=== PATIENT | female | born 2000 | race Caucasian/White ===

== ENCOUNTER 2022-07-26 01:47 | Emergency (ER) | payer SELFPAY ==
[~2022-07-26] VITALS: Ht 162.6 cm; Wt 65.8 kg
[2022-07-26 01:56] VITALS: BP 101/70
--- NOTE | 2022-07-26 02:12 | ED GU-Female ---
General Chief Complaint: OB < 20 WEEKS Stated Complaint: VAG BLEEDING 11 WKS PREG Source: patient History of Present Illness Date Seen by Provider: Jul 26, 2022 Time Seen by Provider: 02:00 Initial Comments PT ARRIVES VIA POV FROM HOME WITH MOTHER PT STATES SHE IS 11 WEEKS , WITH LMP 05/07/[address] MORENO YESTER DAY AND AGAIN TODAY FOR ROUTINE CARE, AND HAD A PELVIC EXAM YESTERDAY AND TODAY AND HAD SWABS DONE FOR STD'S, WELL URINE TESTING DONE. SHE STATES SHE ALSO HAD AN ULTRASOUND YESTERDAY--DONE TRANS ABDOMINALLY--NORMAL, PER PT. SHE STATES SHE WAS DX WITH BACTERIAL VAGINOSIS TODAY AND PRESCRIBED ANTIBIOTIC--HAS TAKEN 2 PILLS TODAY TONIGHT, IMMEDIATELY PRIOR TO ARRIVAL-20 MINUTES AGO-SHE WENT TO THE BATHROOM AND HAD BLOOD ON THE TISSUE WITH WIPING AND RUSHED HERE. SHE VOIDED IN WAITING ROOM AND STATES THE BLEEDING HAS STOPPED NOW. SHE HAS NOT HAD ANY PAIN OR CRAMPING AT ANY TIME. NO FEVER NO URINARY SYMPTOMS NO NAUSEA/VOMITING/DIARRHEA/CONSTIPATION. PT IS AB [address]CP: DR. MORENO, [facility] Allergies and Home Medications Allergies Coded Allergies: No Known Drug Allergies (Unverified , 07/26/22) Review of Systems Review of Systems Constitutional: no symptoms reported; No diaphoresis, No dizziness, No fever EENTM: no symptoms reported Respiratory: no symptoms reported Cardiovascular: no symptoms reported Gastrointestinal: no symptoms reported; No abdominal pain, No constipation, No diarrhea, No nausea, No vomiting Genitourinary: see HPI; denies dysuria : Yes LMP: Jun 06, 2012 Musculoskeletal: no symptoms reported Skin: no symptoms reported Psychiatric/Neurological: No Symptoms Reported Endocrine: No Symptoms Reported Hematologic/Lymphatic: No Symptoms Reported Past Jmgmjlq-Mwisso-Qnbyzq Hx Patient Social History Tobacco Use?: No Substance use?: No Alcohol Use?: No Pt feels they are or have been: No Immunizations Up To Date First/Initial COVID19 Vaccinat: na Past Medical History Surgery/Hospitalization HX: denies Surgeries: No Respiratory: No Cardiac: No Neurological: No : Yes Last Menstrual Period: May 07, 2022 Hx : 1 Hx Para: 0 Hx Total # of Abortions (Sp): 0 Reproductive Disorders: No Genitourinary: No Gastrointestinal: No Musculoskeletal: No Endocrine: No HEENT: No (GLASSES) Cancer: No Psychosocial: No Integumentary: No Blood Disorders: No Physical Exam Vital Signs Vital Signs - First Documented 07/26/22 01:56 Temp 36.5 Pulse 87 Resp 16 B/P (MAP) 101/70 (80) Pulse Ox 100 O2 Delivery Room Air Capillary Refill : Height, Weight, BMI Height: '" Weight: lbs. oz. kg; BMI Method: General Appearance: WD/WN, no apparent distress, thin, other (VERY ANXIOUS) HEENT: other (HORIZONTAL [place]) Neck: normal inspection Cardiovascular: regular rate, rhythm, no murmur Respiratory: normal breath sounds, no respiratory distress, no accessory muscle use Gastrointestinal: normal bowel sounds, non tender, soft, no organomegaly, other (UNABLE TO PALPATE FUNDUS. 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 ) Progress/Results/Core Measures Suspected Sepsis SIRS Temperature: Pulse: Respiratory Rate: Laboratory Tests 07/26/22 02:10: White Blood Count 14.9H Blood Pressure / Mean: Laboratory Tests 07/26/22 02:10: Platelet Count 213 Results/Orders Lab Results Laboratory Tests Test 07/26/22 02:10 Range/Units White Blood Count 14.9 H 4.3-11.0 10^3/uL Red Blood Count 4.57 3.80-5.11 10^6/uL Hemoglobin 12.4 11.5-16.0 g/dL Hematocrit 37 35-52 % Mean Corpuscular Volume 81 80-99 fL Mean Corpuscular Hemoglobin 27 25-34 pg Mean Corpuscular Hemoglobin Concent 33 32-36 g/dL Red Cell Distribution Width 12.2 10.0-14.5 % Platelet Count 213 130-400 10^3/uL Mean Platelet Volume 10.5 9.0-12.2 fL My Orders Orders - ANGELINA KRAUSE DO Cbc No Diff (07/26/22 01:59) Hcg,Quantitative (07/26/22 01:59) Abo Rh Type (07/26/22 01:59) Heart Tones (07/26/22 02:28) Vital Signs/I&O 07/26/22 01:56 Temp 36.5 Pulse 87 Resp 16 B/P (MAP) 101/70 (80) Pulse Ox 100 O2 Delivery Room Air Capillary Refill : Progress Note : Progress Note FHR 155-165 NO BLEEDING DURING ER STAY NO PAIN DURING ER STAY VITALS STABLE BLOOD TYPE IS B+ NO ULTRASOUND AVAILABLE AT THIS TIME, AND IS NOT NECESSARY AT THIS TIME, PT ONLY HAD ONE EPISODE OF BLOOD ON TISSUE WITH WIPING, AND DID USE ANY PADS, AND NO BLEEDING OR PAIN DURING ER STAY, ABDOMEN IS NON-TENDER, AND STRONG HEART TONES ARE OBTAINED. ADDITIONALLY, BLEEDING COULD POTENTIALLY BE RELATED TO 2 PELVIC EXAMS IN THE LAST 2 DAYS, WELL BEING DX WITH BACTERIAL VAGINOSIS TODAY. DISCUSSED TEST RESULTS, ANTICIPATED COURSE, SYMPTOMATIC TREATMENT, ACTIVITIES, NEED FOR FOLLOW UP AND RETURN PRECAUTIONS DISCUSSED WITH PT AND MOTHER. Departure Impression Primary Impression: Threatened miscarriage in early Disposition: 01 HOME, SELF-CARE Condition: Stable Departure-Patient Inst. Referrals: SHAZIA MORENO MD (PCP/Family) Primary Care Physician Patient Instructions: Bleeding in Early ED Add. Discharge Instructions: NOTHING IN VAGINA--NO TAMPONS, DOUCHING OR INTERCOURSE LOTS OF FLUIDS TYLENOL NEEDED FOR PAIN CONTINUE VITAMINS AND ANTIBIOTICS PRESCRIBED FOLLOW UP WITH DR. MORENO ON THURSDAY FOR FURTHER CARE RETURN TO ER IF YOUR ARE SOAKING MORE THAN 1 MAXI PAD AN HOUR OR YOU DEVELOP SEVERE PAIN. All discharge instructions reviewed with patient and/or family. Voiced understanding. ANGELINA KRAUSE DO Jul 26, 2022 02:11
[2022-07-26 02:18] LABS: HEMATOCRIT 37 % (35-52); HEMOGLOBIN 12.4 g/dL (11.5-16.0); MEAN CORPUSCULAR HEMOGLOBIN 27 pg (25-34); MEAN CORPUSCULAR HGB CONC 33 g/dL (32-36); MEAN CORPUSCULAR VOLUME 81 fL (80-99); MEAN PLATELET VOLUME 10.5 fL (9.0-12.2); PLATELET COUNT 213 10^3/uL (130-400); WHITE BLOOD COUNT 14.9 10^3/uL (4.3-11.0)
== END 2022-07-26 03:07 | disposition home or self-care (01) ==
LOC: EDUNIT# 01:47 → ER 01:51
DX: O20.0 Threatened abortion (principal); O09.611 Supervision of young primigravida, first trimester; Z3A.11 11 weeks gestation of pregnancy; Z28.310 Unvaccinated for COVID-19
CPT/HCPCS: 36415; 84702; 85027; 86900; 86901

== ENCOUNTER 2022-10-03 02:37 | Inpatient (IN) | payer SELFPAY ==
[2022-10-03] VITALS (13 sets, daily range): BP systolic 98–127; BP diastolic 53–81
[2022-10-03] MEDS ORDERED: OXYTOCIN PRE-MIX DRIP 500 ML IV ONE (02:51)
--- NOTE | 2022-10-03 03:54 | Consultation ---
History of Present Illness History of Present Illness Patient Consulted On(senia/time) 10/03/22 03:49 Date Seen by Provider: Oct 03, 2022 Time Seen by Provider: 03:45 History of Present Illness Patient of Dr. Broussard'walt who presents at 21.4 weeks with SROM and 2-3 cm dialation. I was consulted to consider emergent delivery. Speaking with patient, this is her first , that has been uncomplicated up until this point. She presented with SROM that occured at 2 am and was having cramping the majority of the day at work. Allergies and Home Medications Allergies Coded Allergies: No Known Drug Allergies (Unverified , 07/26/22) Patient Home Medication List Home Medication List Reviewed: Yes Past Swxbwzs-Ndqbxo-Fexogt Hx Immunizations Up To Date First/Initial COVID19 Vaccinat: na Past Medical History Surgery/Hospitalization HX: denies Surgeries: No Respiratory: No Cardiac: No Neurological: No Reproductive Disorders: No Genitourinary: No Gastrointestinal: No Musculoskeletal: No Endocrine: No HEENT: No (GLASSES) Cancer: No Psychosocial: No Integumentary: No Blood Disorders: No Review of Systems-General Constitutional: see HPI EENTM: see HPI Respiratory: see HPI Cardiovascular: see HPI Gastrointestinal: see HPI Genitourinary: see HPI : Yes Expected Date of Delivery: Feb 11, 2023 Musculoskeletal: see HPI Skin: see HPI Psychiatric/Neurological: See HPI All Other Systems Reviewed Negative Unless Noted: Yes Physical Exam-General Problems Physical Exam Vital Signs Capillary Refill : General Appearance: WD/WN, no apparent distress HEENT: PERRL/EOMI Neck: non-tender Respiratory: chest non-tender, lungs clear Cardiovascular: regular rate, rhythm Skin: normal color, warm/dry Comments SVE done 2-3 cm dialated, 60% effaced, -2 station. Vtx presentation confirmed with exam and US reducable hand could be felt. Assessment/Plan Assessment/Plan Admission Diagnosis/Plan Diagnosis: 21 yo G1 @ 21.4 Premature SROM GBS unknown Plan: Patient given option to do as much as possible for fetus despite high likelyhood of at this gestation, on the cusp of viability. She was also extensively counciled about termite inspector lifetime repercussions that may occur to an infant born at this gestation. She was hesistant at first, but now has decided with her mother to try everything we can at this point. I recommended transfer to higher level of care because she is stable at this point. Give betamethasone dick, start MgSO4 for neuroprophylaxis. Start ampiciliin and azithromycin to prolong latency of labor. Admission Status: Observation KATIE NAJERA DO Oct 03, 2022 03:54
[2022-10-03] MEDS ORDERED: MINERAL OIL 30 ML UDC TOP PRN (04:00)
[2022-10-03] MEDS ORDERED: D5 LR IV SOLUTION 1,000 ML IV SCH (04:00)
[2022-10-03] MEDS ORDERED: AMPICILLIN FOR IV USE 1,000 MG in WATER (STERILE) FOR INJECTION 7.4 ML IV ONE (04:15)
[2022-10-03] MEDS ORDERED: NS (IVPB) 50 ML ONE (04:16)
[2022-10-03] MEDS ORDERED: AMPICILLIN 1,000 MG VIAL (IV USE) ONE (04:16)
--- NOTE | 2022-10-03 04:26 | Short Stay Summary ---
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 Her EDC based upon ultrasound performed at 9 weeks is February 11, 2023. She has only had one ultrasound outpatient and her second US for survey was scheduled for later today. She admits just prior to presentation having a lot of cramping and apparently had a gush of fluid. Bedside ultrasound reveals 1.0 on amniotic fluid. heart tones are noted to be at 140 bpm on presentation. Date of Admission Oct 03, 2022 at 02:38 Date of Discharge October 03, 2022 Time Seen by Provider: 03:25 Attending Physician Janell Wright MD Admitting Physician Admitting Physician: Ana Maria Mayen MD Attending Physician: Ana Maria Mayen MD Consult Allergies and Home Medications Allergies Coded Allergies: No Known Drug Allergies (Unverified , 07/26/22) Patient Home Medication List Home Medication List Reviewed: Yes Past Ngdsjxv-Mubtpz-Mvygri Hx Patient Social History Marrital Status: single Surgeries No Respiratory No Cardiovascular No Neurological No Reproductive System Expected Date of Delivery: Feb 11, 2023 Hx Reproductive Disorders: No Genitourinary No Gastrointestinal No Musculoskeletal No Endocrine History of Endocrine Disorders: No HEENT History of HEENT Disorders: No (GLASSES) Cancer No Psychosocial History of Psychiatric Problem: No Integumentary History of Skin or Integumenta: No Blood Transfusions History of Blood Disorders: No Review of Systems Constitutional: no symptoms reported Physical Exam Vital Signs Capillary Refill : Height, Weight, BMI Height: '" Weight: lbs. oz. kg; 24.00 BMI Method: General Appearance: Anxious Respiratory: Lungs Clear Comments Cervix 3 cm, vertex presenting with hand on head. Short Stay Diagnosis Discharge Diagnosis-Short Stay Admission Diagnosis: 1. Intrauterine at 21 weeks 2 days gestation with spontaneous rupture membranes Final Discharge Diagnosis: 1. Intrauterine at 21 weeks 2 days gestation with spontaneous rupture membranes 2. Not currently in active labor Conclusion Labs Laboratory Tests 10/03/22 02:31: Conclusion/Plan At 03:40 decision was made to contact [facility] as mother had agreed for transfer due to their facility having services that may be able to provide for a 21 week gestation. I spoke with Dr. Reid with the rinatal team and arrangements are being made for transfer to their facility via most likely helicopter. They will call with ETA. In the interim betamethasone is held, but mother is going to receive ampicillin and Zithromax intravenously. ANA MARIA MAYEN MD Oct 03, 2022 04:26
[2022-10-03] MEDS ORDERED: NS (IVPB) 250 ML ONE (04:40)
[2022-10-03] MEDS ORDERED: AZITHROMYCIN INJECTION 500 MG/5 ML VIAL ONE (04:40)
[2022-10-03] MEDS ORDERED: AZITHROMYCIN INJECTION 500 MG in NS (IVPB) 250 ML IV ONE (04:40)
[2022-10-03] MEDS ORDERED: CATHETER FLUSH 10 ML SYR IV SCH ×2 (06:00→14:00)
[2022-10-03] MEDS ORDERED: fentaNYL INJ 100 MCG/2 ML AMP ONE ×2 (06:25→09:42)
[2022-10-03] MEDS: fentaNYL INJ 100 MCG/2 ML AMP IVP PRN ×2 (06:36→10:18)
[2022-10-03 06:56] LABS: BASOPHILS % (AUTO) 0 % (0-10); EOSINOPHILS % (AUTO) 0 % (0-10); HEMATOCRIT 34 % (35-52); HEMOGLOBIN 11.5 g/dL (11.5-16.0); LYMPHOCYTES # (AUTO) 1.1 10^3/uL (1.0-4.0); LYMPHOCYTES % (AUTO) 5 % (12-44); MEAN CORPUSCULAR HEMOGLOBIN 28 pg (25-34); MEAN CORPUSCULAR HGB CONC 34 g/dL (32-36); MEAN CORPUSCULAR VOLUME 83 fL (80-99); MEAN PLATELET VOLUME 10.9 fL (9.0-12.2); MONOCYTES # (AUTO) 0.9 10^3/uL (0.0-1.0); MONOCYTES % (AUTO) 5 % (0-12); NEUTROPHILS # (AUTO) 17.8 10^3/uL (1.8-7.8); NEUTROPHILS % (AUTO) 89 % (42-75); PLATELET COUNT 148 10^3/uL (130-400)
--- NOTE | 2022-10-03 08:22 | Diagnostic Imaging Report ---
INDICATION: Evaluate for viability. TECHNIQUE: Multiple real-time grayscale images were obtained over the gravid uterus. COMPARISON: None FINDINGS: A single live intrauterine gestation is visualized in cephalic presentation. heart rate ranged from 59 to 48 bpm. The placenta is posterior and not low lying. The cervix is closed and measures 4.5 cm in length. The JACKI is abnormal measuring 2.7 cm. No anatomic abnormalities are identified on this limited exam. Views of the adnexa are unremarkable. Biometrical measurements are as follows: Biparietal 4.96 cm, age 21 weeks 1 days. Head circumference 18.23 cm, age 20 weeks 5 days. Abdominal circumference 16.00 cm, age 21 weeks 1 days. Femur length 3.39 cm, age 20 weeks 5 days. Sonographic estimate age: 21 weeks 0 days. Sonographic estimated date of delivery: 02/13/2023. Estimated Weight: 383 gm (+/- 56 gm). LMP percentile: 25%. heart rate: 48 beats per minute. number: 1 of 1. IMPRESSION: 1. Findings concerning for threatened with bradycardia ranging from 59 to 48 bpm. 2. Oligohydramnios with an JACKI of 2.7 cm. The cervix is closed. Dictated by: Dictated on workstation # [id number]
--- NOTE | 2022-10-03 08:27 | Diagnostic Imaging Report ---
TECHNIQUE: Limited ultrasound of a gravid uterus to follow up for bradycardia. COMPARISON: Ultrasound performed approximately 2 hours ago. REASON FOR EXAM: bradycardia. Threatened . FINDINGS: Single live intrauterine gestation is again seen in cephalic presentation with heart tones measuring 37 bpm. The JACKI is low measuring 3.5 cm. The placenta is posterior without evidence of previa. The cervix measures 2.6 cm in length. The adnexa are unremarkable. IMPRESSION: 1. Persistent bradycardia, now measuring 37 bpm. Findings again represent threatened . Recommend continued close followup. 2. Oligohydramnios with JACKI measuring 3.5 cm. Dictated by: Dictated on workstation # [id number]
--- NOTE | 2022-10-03 08:28 | Diagnostic Imaging Report ---
TECHNIQUE: Focused ultrasound of a gravid uterus was performed. COMPARISON: Ultrasound performed approximately 2 hours ago and approximately 30 minutes ago. REASON FOR EXAM: Absent heart tones on monitoring. Evaluate for heart tones. Threatened . FINDINGS: Single intrauterine is visualized. No heart tones are identified on this exam. JACKI measures 3.9 cm. The placenta is posterior and not low lying. IMPRESSION: 1. Findings highly concerning for demise with absent heart tones on this exam. Previous ultrasound performed earlier the same date showed bradycardia. Recommend continued followup as indicated. Dictated by: Dictated on workstation # [id number]
[2022-10-03] MEDS ORDERED: fentaNYL INJ 100 MCG/2 ML AMP IVP PRN ×2 (09:45→11:45)
--- NOTE | 2022-10-03 11:05 | History & Physical-OB ---
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 Her EDC based upon ultrasound performed at 9 weeks is February 11, 2023. She has only had one ultrasound outpatient and her second US for survey was scheduled for later today. She admits just prior to presentation having a lot of cramping and apparently had a gush of fluid. Bedside ultrasound reveals 1.0 on amniotic fluid. heart tones are noted to be at 140 bpm on presentation. Admission Nurse Assessment Rev: Yes Other 21-year-old 1 currently at 21 weeks 2 days gestation who presents to women's services with ruptured membranes. Initially patient was felt to be able for transfer to [facility]. However unfortunately cord prolapse had occurred and infant went on to proceed to a demise case. Patient is now admitted here for delivery and her care Allergies and Home Medications Allergies Coded Allergies: No Known Drug Allergies (Unverified , 07/26/22) Patient Home Medication List Home Medication List Reviewed: Yes OB - History Hx of Present Care: Yes Ultrasounds: Other (1 ultrasound performed in first trimester) Obstetrical Complications: Other (Premature rupture of membranes) Medical Complications: None Patient Past Medical History No chronic medical problems Immunizations Influenza Vaccine Up-to-Date: No; Not Current First/Initial COVID19 Vaccine: na OB - Admission Exam Physical Exam Vitals: Vital Signs 10/03/22 10/03/22 04:49 06:51 Temp 36.4 Pulse 84 Resp 18 B/P (MAP) 100/60 (73) Pulse Ox 100 O2 Delivery Room Air HEENT: Eyes non-injected Heart: Rhythm Normal Lungs: Clear Station: Ballotable Membranes: Ruptured Intensity: Moderate Labs Laboratory Tests Test 10/03/22 06:52 Range/Units White Blood Count 20.0 H 4.3-11.0 10^3/uL Red Blood Count 4.08 3.80-5.11 10^6/uL Hemoglobin 11.5 11.5-16.0 g/dL Hematocrit 34 L 35-52 % Mean Corpuscular Volume 83 80-99 fL Mean Corpuscular Hemoglobin 28 25-34 pg Mean Corpuscular Hemoglobin Concent 34 32-36 g/dL Red Cell Distribution Width 12.5 10.0-14.5 % Platelet Count 148 130-400 10^3/uL Mean Platelet Volume 10.9 9.0-12.2 fL Immature Granulocyte % (Auto) 1 % Neutrophils (%) (Auto) 89 H 42-75 % Lymphocytes (%) (Auto) 5 L 12-44 % Monocytes (%) (Auto) 5 0-12 % Eosinophils (%) (Auto) 0 0-10 % Basophils (%) (Auto) 0 0-10 % Neutrophils # (Auto) 17.8 H 1.8-7.8 10^3/uL Lymphocytes # (Auto) 1.1 1.0-4.0 10^3/uL Monocytes # (Auto) 0.9 0.0-1.0 10^3/uL Eosinophils # (Auto) 0.0 0.0-0.3 10^3/uL Basophils # (Auto) 0.0 0.0-0.1 10^3/uL Immature Granulocyte # (Auto) 0.1 0.0-0.1 10^3/uL OB - Assessment/Plan/Diagnosis Assessment Assessment: other ( demise at 21 weeks gestation) Admission Dx 1. Intrauterine at 21 weeks gestation 2. demise Admission Status: Inpatient Order (span 2 midnights) Reason for Inpatient Admission: Plan delivery of demise with Cytotec Discharge Diagnosis Diagnosis: 1. Intrauterine at 21 weeks 2 days gestation with spontaneous rupture membranes 2. Not currently in active labor ANA MARIA MAYEN MD Oct 03, 2022 11:05
--- NOTE | 2022-10-03 11:11 | OB Labor & Delivery Record ---
L&D History Date of Service Date of Service: Oct 03, 2022 History Expected Date of Delivery: Feb 11, 2023 Gestational Age in Weeks: 21 Hx : 1 Hx Para: 1 Complications Events: Routine care (Up until 21 weeks upon her presentation today) Operative Indications (Cesarea: N/A-Vaginal Delivery (Of a nonviable at 21 weeks) Intrapartal Events: Cord Prolapse Other Complications extreme prematurity L&D Stage1 Stage One Onset of Labor - Date: Oct 03, 2022 Onset of Labor - Time: 02:30 Monitors and Tracing Monitor Mode: Doppler Heart Rate: 144 Monitor Accelerations: None Monitor Decelerations: Prolonged Claim Examiner Variability: Absent (0-2) Presentation: Vertex Vital Signs VS - Last 72 Hours, by Label 10/03/22 10/03/22 10/03/22 03:58 04:49 06:51 Temp 36.9 36.6 36.4 Pulse 94 82 84 Resp 18 18 18 B/P (MAP) 112/56 (74) 100/60 (73) Pulse Ox 98 100 O2 Delivery Room Air Room Air Room Air Signs of Distress by FHT Signs of Distress yes due to the extreme prematurity and cord prolapse Rupture of Membranes Spontaneous Ruture of Membrane: Yes Amniotic Membrane Fluid Desc.: Bloody Induction/Anesthesia Medications fentanyl 25 mg 2 L&D Stage2 Stage Two Stage II Date: Oct 03, 2022 Stage II Time: 10:31 Monitors and Tracing Monitor Mode: Doppler Heart Rate: 0 Presentation: Vertex Signs of Distress by FHT Signs of Distress demise Delivery Type Delivery Method: Spontaneous Vaginal Episiotomy/Perineal Laceration Laceraction(s)/Extensions: No Condition of Infant Delivery 1 minute Comment: 0 5 minute Comment: 0 Condition of Condition of Infant: Stillborn (/ demise) L&D Stage3 Stage Three Stage III Date: Oct 03, 2022 Stage III Time: 10:34 Pictocin Pitocin ml/hr: 125 Placenta Delivery Placenta Delivery: Spontaneous Delivery Summary Summary Estimated blood loss (mL): 100 Condition of Delivery Post Hemorrhage: No Intervention Required minimal uterine massage required to control bleeding ANA MARIA MAYEN MD Oct 03, 2022 11:11
[2022-10-03] MEDS ORDERED: MEASLES,MUMPS,RUBELLA 1 EA INJ SQ ONE (11:15)
[2022-10-03] MEDS ORDERED: TETANUS,DIPTH,PERTUSS P/F (BOOSTRIX) 0.5 ML VIAL IM ONE (11:15)
[2022-10-03] MEDS ORDERED: NALOXONE 0.4 MG/ML 1 ML (NARCAN) VIAL IV PRN (11:15)
[2022-10-03] MEDS: IBUPROFEN 600 MG (MOTRIN) TAB PO SCH (14:55)
[2022-10-03] MEDS: ACETAMINOPHEN 500 MG TAB (TYLENOL) PO SCH (14:55)
[2022-10-04 01:00] VITALS: BP 101/59
[2022-10-04] MEDS: IBUPROFEN 600 MG (MOTRIN) TAB PO SCH ×2 (01:00→09:06)
[2022-10-04] MEDS: ACETAMINOPHEN 500 MG TAB (TYLENOL) PO SCH ×2 (01:00→09:07)
[2022-10-04 05:00] VITALS: BP 107/58
[2022-10-04 05:58] LABS: BASOPHILS # (AUTO) 0.1 10^3/uL (0.0-0.1); BASOPHILS % (AUTO) 0 % (0-10); EOSINOPHILS # (AUTO) 0.3 10^3/uL (0.0-0.3); EOSINOPHILS % (AUTO) 2 % (0-10); HEMATOCRIT 33 % (35-52); HEMOGLOBIN 10.8 g/dL (11.5-16.0); LYMPHOCYTES # (AUTO) 2.1 10^3/uL (1.0-4.0); LYMPHOCYTES % (AUTO) 15 % (12-44); MEAN CORPUSCULAR HEMOGLOBIN 28 pg (25-34); MEAN CORPUSCULAR HGB CONC 33 g/dL (32-36); MEAN CORPUSCULAR VOLUME 84 fL (80-99); MEAN PLATELET VOLUME 11.1 fL (9.0-12.2); MONOCYTES # (AUTO) 1.1 10^3/uL (0.0-1.0); MONOCYTES % (AUTO) 8 % (0-12); NEUTROPHILS # (AUTO) 10.5 10^3/uL (1.8-7.8); NEUTROPHILS % (AUTO) 75 % (42-75); PLATELET COUNT 142 10^3/uL (130-400)
[2022-10-04 09:02] VITALS: BP 109/55
[2022-10-04] MEDS ORDERED: IBUP-844 PO (10:46)
[2022-10-04] MEDS ORDERED: FERR325T18 PO (10:46)
--- NOTE | 2022-10-04 10:49 | Discharge Summary ---
Discharge Inst-Women's Serv Depart Medications New, Converted or Re-Newed RX: Transmitted to Pharmacy New Medications: Ferrous Sulfate (Ferrous Sulfate) 325 Mg (65 Mg Iron) Tablet 325 MG PO DAILY, #30 TAB 0 Refills Ibuprofen (Ibu) 600 Mg Tablet 600 MG PO Q6H PRN for PAIN-MILD TO MODERATE, #60 TAB 0 Refills Follow Up/Instructions Goal/Follow Up: Follow up with Dr. Wright next week Activity Activity: Activity as Tolerated (avoid strenuous activity for 6 weeks) Driving Instructions: You May Drive NO SMOKING: NO SMOKING Nothing Inside Vagina: No Douching, No [place], No Tampons Diet Discharge Diet: No Restrictions Symptoms to Report to : Swelling Increased, Constipation(Persistant), Fever Over 101 Degrees F, Pain/Pressure in Chest, Heart Beat Irreg/Pounding, Vaginal Bleeding Increase, Vaginal Discharge Foul, Dizziness/Fainting, Shortness of Breath For Any Problems or Questions: Contact Your Physician JAYLEEN NOLAN MD Oct 04, 2022 10:49
--- NOTE | 2022-10-04 10:50 | Discharge Summary ---
Discharge Summary Hospital Course Hospital Course Date of Admission: Oct 03, 2022 at 02:38 Admission Diagnosis : premature rupture of membranes Second trimester 21 weeks gestation Family Physician/Provider: Shazia Wright MD Date of Discharge: 10/04/22 Discharge Diagnosis: premature rupture of membranes Umbilical cord prolapse Intrauterine demise s/p spontaneous vaginal delivery acute blood loss anemia Hospital Course: 21 yo G1 at 21 weeks of gestation presented to the hospital after gush of fluid and home, found to have ruptured membranes and ultrasound showing JACKI less than 2 and low heart tones. Per admitting physician and consult with Industrial Chemicals Supervisor, conversation was had regarding intermediate teacher complications and high likelihood of and risks of attempting to prolong and attempting resuscitation when delivered, per notes, patient initially hesitant, but decided she would prefer to proceed with transfer. Antibiotics were started and [facility] was contacted for transfer, but unfortunately she had decreasing heart tones, and ultimately umbilical cord prolapse and demise prior to transfer. Cytotec induction done after and she had uncomplicated vaginal delivery. Leukocytosis on arrival improved to near normal after delivery. Asymptomatic anemia treated with iron supplementation. Discussed mental health services available and recommended follow up next week in clinic. Labs and Pending Lab Test: Laboratory Tests 10/04/22 05:40: White Blood Count 14.0H, Red Blood Count 3.90, Hemoglobin 10.8L, Hematocrit 33L, Mean Corpuscular Volume 84, Mean Corpuscular Hemoglobin 28, Mean Corpuscular Hemoglobin Concent 33, Red Cell Distribution Width 12.6, Platelet Count 142, Mean Platelet Volume 11.1, Immature Granulocyte % (Auto) 0, Neutrophils (%) (Auto) 75, Lymphocytes (%) (Auto) 15, Monocytes (%) (Auto) 8, Eosinophils (%) (Auto) 2, Basophils (%) (Auto) 0, Neutrophils # (Auto) 10.5H, Lymphocytes # (Auto) 2.1, Monocytes # (Auto) 1.1H, Eosinophils # (Auto) 0.3, Basophils # (Auto) 0.1, Immature Granulocyte # (Auto) 0.1 Microbiology 10/03/22 Group B Streptococcus Culture - Preliminary, Resulted Home Meds Active Ferrous Sulfate 325 Mg (65 Mg Iron) Tablet 325 Mg PO DAILY Ibu (Ibuprofen) 600 Mg Tablet 600 Mg PO Q6H PRN Assessment/Pt DC Instructions Follow up with Dr. Wright next week. Discharge Physical Examination Allergies: Coded Allergies: No Known Drug Allergies (Unverified , 07/26/22) General Appearance: No Apparent Distress Respiratory: Lungs Clear, Normal Breath Sounds Cardiovascular: Regular Rate, Rhythm, No Murmur Gastrointestinal: Normal Bowel Sounds, Other (fundus firm below umbilicus, appropriately ttp) Extremity: No Pedal Edema Skin: Warm/Dry Neurologic/Psychiatric: Alert, Depressed Affect, Other (minimally answers questions with yes/no and head nods) Copy Copies To 1: SHAZIA WRIGHT MDOCH,JAYLEEN Kilpatrick MD Oct 04, 2022 10:50
[2022-10-04 12:55] VITALS: BP 109/55
== END 2022-10-04 11:55 | disposition home or self-care (01) | DRG 806 ==
LOC: WSo 02:37 → LDRP 02:38 → WS 13:00
PROVIDERS: ADMIT Family Medicine; ATTEND Family Medicine
PROC: 10E0XZZ Delivery of Products of Conception, External Approach (ICD-10-PCS; principal; 2022-10-03)
PROC: 3E0P7VZ Introduction of Hormone into Female Reproductive, Via Natural or Artificial Opening (ICD-10-PCS; 2022-10-03)
DX: O42.912 Preterm premature rupture of membranes, unspecified as to length of time between rupture and onset of labor, second trimester (principal); D62 Acute posthemorrhagic anemia; Z37.1 Single stillbirth; O36.4XX0 Maternal care for intrauterine death, not applicable or unspecified; O69.0XX0 Labor and delivery complicated by prolapse of cord, not applicable or unspecified; Z3A.21 21 weeks gestation of pregnancy; O76 Abnormality in fetal heart rate and rhythm complicating labor and delivery; O90.81 Anemia of the puerperium
CPT/HCPCS: 36415; 76805; 76815; 85025; 86780; 86850; 86900; 86901; 87081